=== PATIENT | female | born 1965 ===

== ENCOUNTER 2018-06-08 10:16 | Emergency (ER) | payer OTHER ==
--- NOTE | 2018-06-08 12:32 | UC ---
Skin Complaint HPI - HPI Summary HPI Summary: 52 year old on recent 12 hour flight from [place], c/o rash and slight swelling dorsum of both feet. No SOB or leg swelling. - History of Current Complaint Chief Complaint: UCSkin Time Seen by Provider: 06/08/18 12:10 Stated Complaint: RASH, LEG SWELLING Hx Last Menstrual Period: 05/16/18 Pain Intensity: 0 - Allergy/Home Medications Allergies/Adverse Reactions: Allergies Allergy/AdvReac Type Severity Reaction Status Date / Time environmental Allergy Rash Uncoded 06/08/18 10:56 Home Medications: Home Medications Escitalopram Oxalate [Lexapro 20 mg] 15 mg PO DAILY 06/08/18 [History Confirmed 06/08/18] Fexofenadine HCl [Allergy Relief 24Hr] 180 mg PO 06/08/18 [History] PMH/Surg Hx/FS Hx/Imm Hx - Additional Past Medical History Additional PMH: No surgeries or serious illness admissions. Hx of allergies. 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 Previously Healthy: Yes - Surgical History Surgical History: None - Social History Alcohol Use: None Substance Use Type: None Smoking Status (MU): Never Smoked Tobacco Review of Systems All Other Systems Reviewed And Are Negative: Yes Constitutional: Positive: Negative Skin: Positive: Rash - both feet Eyes: Positive: Negative ENT: Positive: Negative Respiratory: Positive: Negative Cardiovascular: Positive: Negative Gastrointestinal: Positive: Negative Genitourinary: Positive: Negative Motor: Positive: Negative Neurovascular: Positive: Negative Musculoskeletal: Positive: Negative Neurological: Positive: Negative Psychological: Positive: Negative Is Patient Immunocompromised?: No Physical Exam - Summary Physical Exam Summary: Appearance: The patient is well-appearing, is in no pain or distress, and is well-nourished. Eyes: Conjunctiva are clear. Pupils are equal and reactive to light and accommodation. Extraocular muscle movement is intact. ENT: The hearing is grossly normal, the pharynx is normal, and the TMs are normal. There is no muffled or hoarse voice. No stridor. Neck: The neck is supple and there is no lymphadenopathy. Respiratory: The chest is nontender to palpation and without crepitus. The lungs are clear, there are normal breath sounds, and there is no respiratory distress. No wheezes, rales or rhonchi. Cardiovascular: Heart sounds reveal a regular rate and rhythm. There are no clicks, rubs or murmurs. There are no carotid bruits or thrills. Circulation is grossly intact. Abdomen: The abdomen is soft and nontender. There is no organomegaly. Bowel sounds are present and within normal limits. No point tenderness at McBurneys point. Musculoskeletal: Strength is intact. The patient moves all extremities. Neurological: The patient is alert. Motor and sensory examination grossly intact. Speech is normal. Psychological: The patient displays age appropriate behavior. Oriented to person , place and time. Skin:Dorsum of both feet, maculopapular, erythematous rash with few pustules. Scattered. Areas show itching. No lymphangitis or cellulitis. Vital Signs: Initial Vital Signs Temp 97.9 F 06/08/18 10:50 Pulse 64 06/08/18 10:50 Resp 16 06/08/18 10:50 BP 115/90 06/08/18 10:50 Pulse Ox 100 06/08/18 10:50 Course/Dx - Course Course Of Treatment: healthy 52 year old with rash over past 24 hours that itches on both feet. Probable contact dermatitis. Will treat with steroid ointment. No systemic involvement. MEDS REVIEWED. HYPTERTENSION: 115/90. - Differential Diagnoses - Skin Complaint Differential Diagnoses: Contact Dermatitis, Eczema - Diagnoses Provider Diagnosis: Contact allergic reaction Discharge - Sign-Out/Discharge Documenting (check all that apply): Patient Departure All imaging exams completed and their final reports reviewed: No Studies - Discharge Plan Condition: Stable Disposition: HOME Prescriptions: Triamcinolone 0.5% OINT * 1 applic TOPICAL BID #1 tube Patient Education Materials: Contact Dermatitis (DC) Referrals: No Primary Care Phys,NOPCP [Primary Care Provider] - Additional Instructions: WE DISCUSSED: PLEASE SEEK CARE AT THE EMERGENCY DEPARTMENT IF SYMPTOMS WORSEN OR IF NEW SYMPTOMS DEVELOP. FOLLOW UP WITH YOUR PRIMARY CARE PHYSICIAN IF CONDITION CONTINUES BEYOND 3 DAYS WITHOUT IMPROVEMENT. YOUR DIAGNOSIS IS: contact dermatitis of your feet YOUR PRESCRIPTION RECOMMENDATION IS: steroid ointment, 3 times a day for 3 days. Then use less powerful over the counter steriod cream. OTHER INSTRUCTIONS: Hypertension Discharge Instructions: Your blood pressure reading today was 115/90. The bottom number is a little high. Recheck your blood pressure at least once over the next 4 weeks. - Billing Disposition and Condition Condition: STABLE Disposition: Home
[2018-06-08 12:58] VITALS: BP 114/69
== END 2018-06-08 12:58 | disposition home or self-care (01) ==
LOC: UCEAST 10:16
DX: L23.9 Allergic contact dermatitis, unspecified cause (principal)
CPT/HCPCS: 99201; G0463